=== PATIENT | female | born 1940 | race Caucasian/White ===

== ENCOUNTER 2020-11-03 02:24 | Inpatient (IN) ==
[2020-11-03] MEDS ORDERED: NICOTINE 21 MG/24 HR PATCH TRANSDERM PRN (05:41)
[2020-11-03] MEDS ORDERED: ZALEPLON 5 MG CAPSULE PO PRN (05:41)
[2020-11-03] MEDS ORDERED: DEXTROSE 50% 25 GM/50 ML VIAL IV PRN (05:41)
[2020-11-03] MEDS ORDERED: GLUCAGON 1 MG VIAL IM PRN (05:41)
[2020-11-03] MEDS ORDERED: DOCUSATE SODIUM 100 MG CAPSULE PO PRN (05:41)
[2020-11-03] MEDS ORDERED: ACETAMINOPHEN 325 MG TABLET PO PRN (05:41)
[2020-11-03] MEDS ORDERED: hydrALAZINE 20 MG/1 ML VIAL IV PRN (05:41)
[2020-11-03] MEDS ORDERED: ALBUTEROL 2.5 MG/3 ML NEB RESP TX PRN (05:41)
[2020-11-03] MEDS ORDERED: diphenhydrAMINE CAP 25 MG CAPSULE PO PRN (05:41)
[2020-11-03] MEDS ORDERED: LEVOTHYROXINE 100 MCG TABLET PO SCH (06:30)
[2020-11-03 06:49] LABS: Basophils # 0.1 10*3/uL (0.0-0.2); Basophils % 0.5 % (0.0-0.8); Eosinophils # 0.1 10*3/uL (0.0-0.87); Eosinophils % 0.8 % (0.00-10.9); Hematocrit 38.6 VOL% (35.7-47.0); Hemoglobin 12.8 GM/DL (12.0-16.0); Immature Granulocytes % 0.3 %; Immature Granulocytes Absolute 0.03 #; Lymphocytes # 2.2 10*3/uL (1.4-4.0); Lymphocytes % 22.3 % (21.3-54.2); Mean Corpuscular HGB Conc 33.2 GM/DL (32-36); Monocytes % 8.2 % (1.7-12.7); Neutrophils % 67.9 % (38.7-73.9); Platelet Count 198 T/CUMM (130-400); Red Blood Count 4.15 MC/CUMM (3.8-5.5); Red Cell Distribution Width 12.8 % (9.3-17.3)
[2020-11-03 07:12] LABS: Hypochromasia Slight; Microcytosis Slight; Platelet Estimate Adequate
[2020-11-03 07:23] LABS: Calcium 9.2 MG/DL (8.5-10.1); Potassium 4.2 MMOL/L (3.5-5.1)
[2020-11-03 07:32] LABS: Free T4 (Free Thyroxine) 1.75 NG/DL (0.76-1.46)
[2020-11-03] MEDS: SOTALOL 80 MG TABLET PO SCH ×2 (09:19→21:59)
[2020-11-03] MEDS: RIVAROXABAN 20 MG TABLET PO SCH (09:19)
[2020-11-03] MEDS: ASPIRIN EC 81 MG TABLET PO SCH (09:19)
[2020-11-03] MEDS: PANTOPRAZOLE 40 MG TABLET PO SCH (09:20)
[2020-11-03] MEDS: SPIRONOLACTONE 25 MG TABLET PO SCH (09:20)
[2020-11-03] MEDS: FUROSEMIDE 40 MG TABLET PO SCH (09:20)
[2020-11-03] MEDS: ENALAPRIL 20 MG TABLET PO SCH (09:20)
[2020-11-03] MEDS: LEVOFLOXACIN INJ 750 MG/150 ML PREMIX IV SCH (12:23)
[2020-11-03] MEDS: SODIUM CHLORIDE 0.9% 1,000 ML IV SCH (13:11)
[2020-11-03] MEDS: FLUTICASONE 50 MCG NASAL SPRAY 16 GM BOTTLE BOTH NARES SCH ×2 (13:11→14:06)
[2020-11-03] MEDS: guaiFENesin/DM ER 600-30 MG TABLET PO PRN ×2 (14:06→21:59)
[2020-11-03] MEDS ORDERED: KETOROLAC 30 MG/1 ML VIAL IV ONE (15:52)
[2020-11-03] MEDS ORDERED: ALUM/MAG/SIMETH/LIDO VISC 1:1 30 ML BOTTLE PO ONE (15:53)
[2020-11-03] MEDS: ALBUTEROL 0.63 MG/3 ML NEB RESP TX SCH (20:47)
[2020-11-03] MEDS: ATORVASTATIN 40 MG TABLET PO SCH (21:59)
[2020-11-03] MEDS: MONTELUKAST 10 MG TABLET PO SCH (21:59)
[2020-11-03] MEDS: ONDANSETRON 4 MG/2 ML VIAL IV PRN (22:17)
[2020-11-04] MEDS: ALBUTEROL 0.63 MG/3 ML NEB RESP TX SCH ×7 (01:00→22:32)
[2020-11-04 06:07] LABS: Basophils % 0.4 % (0.0-0.8); Eosinophils # 0.1 10*3/uL (0.0-0.87); Eosinophils % 1.4 % (0.00-10.9); Hemoglobin 12.9 GM/DL (12.0-16.0); Immature Granulocytes % 0.3 %; Immature Granulocytes Absolute 0.02 #; Lymphocytes # 1.7 10*3/uL (1.4-4.0); Lymphocytes % 24.4 % (21.3-54.2); Mean Corpuscular HGB Conc 33.1 GM/DL (32-36); Mean Corpuscular Volume 92.6 FL (87-102); Mean Platelet Volume 11.6 FL (9.6-12.0); Monocytes % 11.5 % (1.7-12.7); Platelet Count 160 T/CUMM (130-400); Red Blood Count 4.21 MC/CUMM (3.8-5.5)
[2020-11-04 06:27] LABS: Osmolality,Calculated 273.2 MOS/KG (273-304)
[2020-11-04] MEDS: LEVOTHYROXINE 75 MCG TABLET PO SCH (06:54)
[2020-11-04] MEDS ORDERED: MIDAZOLAM 10 MG/2 ML VIAL IV ONE (07:52)
[2020-11-04] MEDS: ASPIRIN EC 81 MG TABLET PO SCH (09:26)
[2020-11-04] MEDS: FLUTICASONE 50 MCG NASAL SPRAY 16 GM BOTTLE BOTH NARES SCH (09:26)
[2020-11-04] MEDS: SPIRONOLACTONE 25 MG TABLET PO SCH (09:26)
[2020-11-04] MEDS: FUROSEMIDE 40 MG TABLET PO SCH (09:26)
[2020-11-04] MEDS: RIVAROXABAN 20 MG TABLET PO SCH (09:26)
[2020-11-04] MEDS: SOTALOL 80 MG TABLET PO SCH (09:26)
[2020-11-04] MEDS: ENALAPRIL 20 MG TABLET PO SCH (09:30)
[2020-11-04] MEDS: LEVOFLOXACIN INJ 750 MG/150 ML PREMIX IV SCH (09:34)
[2020-11-04] MEDS: sitaGLIPtin 100 MG TABLET PO SCH (09:34)
[2020-11-04] MEDS: PANTOPRAZOLE 40 MG TABLET PO SCH (09:34)
[2020-11-04] MEDS: SODIUM CHLORIDE 0.9% 1,000 ML IV SCH (12:49)
[2020-11-04] MEDS: INSULIN LISPRO 100 UNIT/ML SUBCUT SCH ×2 (16:55→21:59)
[2020-11-04] MEDS: MORPHINE 4 MG/1 ML VIAL IV PRN (18:02)
[2020-11-04] MEDS: ONDANSETRON 4 MG/2 ML VIAL IV PRN (19:45)
[2020-11-04] MEDS: MONTELUKAST 10 MG TABLET PO SCH (21:59)
[2020-11-04] MEDS: ATORVASTATIN 40 MG TABLET PO SCH (21:59)
[2020-11-04] MEDS: guaiFENesin/DM ER 600-30 MG TABLET PO PRN (21:59)
[2020-11-05] MEDS: ONDANSETRON 4 MG/2 ML VIAL IV PRN ×3 (00:54→12:18)
[2020-11-05] MEDS ORDERED: ONDANSETRON 4 MG/2 ML VIAL IV ONE ×2 (02:57→03:08)
[2020-11-05] MEDS ORDERED: MORPHINE 4 MG/1 ML VIAL IV ONE (02:57)
[2020-11-05] MEDS: ALBUTEROL 0.63 MG/3 ML NEB RESP TX SCH ×5 (04:00→19:22)
[2020-11-05 04:23] LABS: Basophils % 0.4 % (0.0-0.8); Eosinophils # 0.1 10*3/uL (0.0-0.87); Eosinophils % 1.5 % (0.00-10.9); Hematocrit 36.6 VOL% (35.7-47.0); Hemoglobin 12.2 GM/DL (12.0-16.0); Immature Granulocytes % 0.4 %; Immature Granulocytes Absolute 0.03 #; Lymphocytes # 2.5 10*3/uL (1.4-4.0); Lymphocytes % 30.1 % (21.3-54.2); Mean Corpuscular HGB Conc 33.3 GM/DL (32-36); Mean Corpuscular Volume 93.6 FL (87-102); Mean Platelet Volume 11.7 FL (9.6-12.0); Neutrophils % 56.6 % (38.7-73.9); Platelet Count 183 T/CUMM (130-400); Red Blood Count 3.91 MC/CUMM (3.8-5.5); Red Cell Distribution Width 13.2 % (9.3-17.3); White Blood Count 8.3 T/CUMM (4-12)
[2020-11-05 04:40] LABS: Calcium 9.3 MG/DL (8.5-10.1); Osmolality,Calculated 271.2 MOS/KG (273-304); Potassium 4.3 MMOL/L (3.5-5.1)
[2020-11-05] MEDS: LEVOTHYROXINE 75 MCG TABLET PO SCH (06:05)
[2020-11-05] MEDS: MORPHINE 4 MG/1 ML VIAL IV PRN ×3 (08:13→21:24)
[2020-11-05] MEDS: ASPIRIN EC 81 MG TABLET PO SCH (08:14)
[2020-11-05] MEDS: FUROSEMIDE 40 MG TABLET PO SCH (08:14)
[2020-11-05] MEDS: SPIRONOLACTONE 25 MG TABLET PO SCH (08:14)
[2020-11-05] MEDS: FLUTICASONE 50 MCG NASAL SPRAY 16 GM BOTTLE BOTH NARES SCH (08:14)
[2020-11-05] MEDS: PANTOPRAZOLE 40 MG TABLET PO SCH (08:14)
[2020-11-05] MEDS: RIVAROXABAN 20 MG TABLET PO SCH (08:14)
[2020-11-05] MEDS: sitaGLIPtin 100 MG TABLET PO SCH (08:14)
[2020-11-05] MEDS: ENALAPRIL 20 MG TABLET PO SCH (08:15)
[2020-11-05] MEDS: INSULIN LISPRO 100 UNIT/ML SUBCUT SCH ×4 (08:23→20:28)
[2020-11-05] MEDS: SODIUM CHLORIDE 0.9% 1,000 ML IV SCH (09:20)
[2020-11-05] MEDS: LEVOFLOXACIN INJ 750 MG/150 ML PREMIX IV SCH (09:20)
[2020-11-05] MEDS ORDERED: PHENOL 1.4% THROAT SPRAY 177 ML BOTTLE PO PRN (09:45)
[2020-11-05] MEDS: MONTELUKAST 10 MG TABLET PO SCH (20:28)
[2020-11-05] MEDS: ATORVASTATIN 40 MG TABLET PO SCH (20:28)
[2020-11-06] MEDS: ALBUTEROL 0.63 MG/3 ML NEB RESP TX SCH ×7 (00:44→22:40)
[2020-11-06 04:44] LABS: Basophils % 0.5 % (0.0-0.8); Eosinophils # 0.1 10*3/uL (0.0-0.87); Eosinophils % 0.8 % (0.00-10.9); Hematocrit 36.2 VOL% (35.7-47.0); Hemoglobin 11.9 GM/DL (12.0-16.0); Immature Granulocytes % 0.4 %; Immature Granulocytes Absolute 0.03 #; Lymphocytes % 26.7 % (21.3-54.2); Mean Corpuscular HGB Conc 32.9 GM/DL (32-36); Mean Corpuscular Volume 93.5 FL (87-102); Mean Platelet Volume 11.1 FL (9.6-12.0); Monocytes % 8.5 % (1.7-12.7); Neutrophils % 63.1 % (38.7-73.9); Platelet Count 175 T/CUMM (130-400); Red Blood Count 3.87 MC/CUMM (3.8-5.5); Red Cell Distribution Width 12.7 % (9.3-17.3); White Blood Count 7.5 T/CUMM (4-12)
[2020-11-06 04:56] LABS: Calcium 9.3 MG/DL (8.5-10.1); Osmolality,Calculated 270.2 MOS/KG (273-304)
[2020-11-06 05:13] LABS: Hypochromasia 1+; Microcytosis 1+; Platelet Estimate Adequate
[2020-11-06] MEDS: LEVOTHYROXINE 75 MCG TABLET PO SCH (05:37)
[2020-11-06] MEDS: PANTOPRAZOLE 40 MG TABLET PO SCH (08:54)
[2020-11-06] MEDS: SPIRONOLACTONE 25 MG TABLET PO SCH (08:55)
[2020-11-06] MEDS: sitaGLIPtin 100 MG TABLET PO SCH (08:55)
[2020-11-06] MEDS: RIVAROXABAN 20 MG TABLET PO SCH (08:55)
[2020-11-06] MEDS: FUROSEMIDE 40 MG TABLET PO SCH (08:55)
[2020-11-06] MEDS: ASPIRIN EC 81 MG TABLET PO SCH (08:56)
[2020-11-06] MEDS: ENALAPRIL 20 MG TABLET PO SCH (08:56)
[2020-11-06] MEDS: FLUTICASONE 50 MCG NASAL SPRAY 16 GM BOTTLE BOTH NARES SCH (08:56)
[2020-11-06] MEDS: INSULIN LISPRO 100 UNIT/ML SUBCUT SCH ×4 (08:59→20:22)
[2020-11-06] MEDS: SODIUM CHLORIDE 0.9% 1,000 ML IV SCH (10:17)
[2020-11-06] MEDS: ATORVASTATIN 40 MG TABLET PO SCH (20:22)
[2020-11-06] MEDS: MONTELUKAST 10 MG TABLET PO SCH (20:22)
[2020-11-07] MEDS: ALBUTEROL 0.63 MG/3 ML NEB RESP TX SCH ×6 (02:37→23:50)
[2020-11-07] MEDS: LEVOTHYROXINE 75 MCG TABLET PO SCH (05:34)
[2020-11-07] MEDS: INSULIN LISPRO 100 UNIT/ML SUBCUT SCH ×4 (08:20→22:45)
[2020-11-07] MEDS: FUROSEMIDE 40 MG TABLET PO SCH (09:06)
[2020-11-07] MEDS: SPIRONOLACTONE 25 MG TABLET PO SCH (09:06)
[2020-11-07] MEDS: RIVAROXABAN 20 MG TABLET PO SCH (09:06)
[2020-11-07] MEDS: PANTOPRAZOLE 40 MG TABLET PO SCH (09:07)
[2020-11-07] MEDS: METOPROLOL SUCCINATE XL 50 MG TABLET PO SCH (09:07)
[2020-11-07] MEDS: ASPIRIN EC 81 MG TABLET PO SCH (09:07)
[2020-11-07] MEDS: sitaGLIPtin 100 MG TABLET PO SCH (09:07)
[2020-11-07] MEDS: ENALAPRIL 20 MG TABLET PO SCH (09:07)
[2020-11-07] MEDS: FLUTICASONE 50 MCG NASAL SPRAY 16 GM BOTTLE BOTH NARES SCH (09:07)
[2020-11-07] MEDS: SODIUM CHLORIDE 0.9% 1,000 ML IV SCH (09:42)
[2020-11-07] MEDS: ONDANSETRON 4 MG/2 ML VIAL IV PRN (11:33)
[2020-11-07] MEDS ORDERED: POLYETHYLENE GLYCOL POWDER 17 GM PACK PO PRN (13:58)
[2020-11-07] MEDS: DOCUSATE SODIUM 100 MG CAPSULE PO SCH (22:42)
[2020-11-07] MEDS: MONTELUKAST 10 MG TABLET PO SCH (22:42)
[2020-11-07] MEDS: ATORVASTATIN 40 MG TABLET PO SCH (22:42)
[2020-11-08] MEDS: ALBUTEROL 0.63 MG/3 ML NEB RESP TX SCH ×5 (03:08→20:18)
[2020-11-08] MEDS: LEVOTHYROXINE 75 MCG TABLET PO SCH (06:40)
[2020-11-08] MEDS: PANTOPRAZOLE 40 MG TABLET PO SCH (09:00)
[2020-11-08] MEDS: sitaGLIPtin 100 MG TABLET PO SCH (09:00)
[2020-11-08] MEDS: RIVAROXABAN 20 MG TABLET PO SCH (09:00)
[2020-11-08] MEDS: FUROSEMIDE 40 MG TABLET PO SCH (09:00)
[2020-11-08] MEDS: SPIRONOLACTONE 25 MG TABLET PO SCH (09:01)
[2020-11-08] MEDS: DOCUSATE SODIUM 100 MG CAPSULE PO SCH ×2 (09:01→22:45)
[2020-11-08] MEDS: ENALAPRIL 20 MG TABLET PO SCH (09:01)
[2020-11-08] MEDS: METOPROLOL SUCCINATE XL 50 MG TABLET PO SCH (09:01)
[2020-11-08] MEDS: FLUTICASONE 50 MCG NASAL SPRAY 16 GM BOTTLE BOTH NARES SCH (09:02)
[2020-11-08] MEDS: ASPIRIN EC 81 MG TABLET PO SCH (09:02)
[2020-11-08] MEDS: INSULIN LISPRO 100 UNIT/ML SUBCUT SCH ×4 (09:35→20:01)
[2020-11-08] MEDS: SODIUM CHLORIDE 0.9% 1,000 ML IV SCH (09:36)
[2020-11-08] MEDS ORDERED: TUBERCULIN SKIN TEST 0.1 ML SYRINGE INTRADERM ONE (15:01)
[2020-11-08] MEDS: MONTELUKAST 10 MG TABLET PO SCH (22:45)
[2020-11-08] MEDS: ATORVASTATIN 40 MG TABLET PO SCH (22:45)
[2020-11-09] MEDS: ALBUTEROL 0.63 MG/3 ML NEB RESP TX SCH ×5 (00:16→19:32)
[2020-11-09] MEDS: LEVOTHYROXINE 75 MCG TABLET PO SCH (06:06)
[2020-11-09 07:37] LABS: Basophils % 0.5 % (0.0-0.8); Eosinophils # 0.1 10*3/uL (0.0-0.87); Eosinophils % 0.6 % (0.00-10.9); Hematocrit 39.7 VOL% (35.7-47.0); Immature Granulocytes % 0.4 %; Immature Granulocytes Absolute 0.03 #; Lymphocytes # 2.6 10*3/uL (1.4-4.0); Lymphocytes % 32.3 % (21.3-54.2); Mean Corpuscular HGB Conc 32.7 GM/DL (32-36); Mean Corpuscular Volume 93.9 FL (87-102); Mean Platelet Volume 10.9 FL (9.6-12.0); Monocytes % 7.5 % (1.7-12.7); Neutrophils % 58.7 % (38.7-73.9); Platelet Count 216 T/CUMM (130-400); Red Blood Count 4.23 MC/CUMM (3.8-5.5); Red Cell Distribution Width 12.5 % (9.3-17.3); White Blood Count 8.1 T/CUMM (4-12)
[2020-11-09 07:52] LABS: Osmolality,Calculated 271.2 MOS/KG (273-304); Potassium 4.2 MMOL/L (3.5-5.1)
[2020-11-09 07:56] LABS: Eosinophils 2 % (0-10); Hypochromasia Slight; Lymphocytes 33 % (20-55); Microcytosis Slight; Platelet Estimate Adequate; Segmented Neutrophils 60 % (50-85); Total Cells Counted 100
[2020-11-09] MEDS: RIVAROXABAN 20 MG TABLET PO SCH (09:07)
[2020-11-09] MEDS: INSULIN LISPRO 100 UNIT/ML SUBCUT SCH ×4 (09:07→20:01)
[2020-11-09] MEDS: sitaGLIPtin 100 MG TABLET PO SCH (09:07)
[2020-11-09] MEDS: DOCUSATE SODIUM 100 MG CAPSULE PO SCH ×2 (09:08→20:37)
[2020-11-09] MEDS: METOPROLOL SUCCINATE XL 50 MG TABLET PO SCH (09:08)
[2020-11-09] MEDS: FUROSEMIDE 40 MG TABLET PO SCH (09:08)
[2020-11-09] MEDS: PANTOPRAZOLE 40 MG TABLET PO SCH (09:08)
[2020-11-09] MEDS: SPIRONOLACTONE 25 MG TABLET PO SCH (09:08)
[2020-11-09] MEDS: ENALAPRIL 20 MG TABLET PO SCH (09:08)
[2020-11-09] MEDS: ASPIRIN EC 81 MG TABLET PO SCH (09:08)
[2020-11-09] MEDS: metFORMIN 500 MG TABLET PO SCH (09:08)
[2020-11-09] MEDS: FLUTICASONE 50 MCG NASAL SPRAY 16 GM BOTTLE BOTH NARES SCH (09:09)
[2020-11-09] MEDS: SODIUM CHLORIDE 0.9% 1,000 ML IV SCH (09:10)
[2020-11-09] MEDS: POLYETHYLENE GLYCOL POWDER 17 GM PACK PO SCH (12:08)
[2020-11-09] MEDS ORDERED: SODIUM CHLORIDE 0.65% NASAL SPRAY 45 ML BOTTLE BOTH NARES PRN (14:09)
[2020-11-09] MEDS: MONTELUKAST 10 MG TABLET PO SCH (20:37)
[2020-11-09] MEDS: ATORVASTATIN 40 MG TABLET PO SCH (20:37)
[2020-11-10] MEDS: ALBUTEROL 0.63 MG/3 ML NEB RESP TX SCH ×4 (00:52→11:00)
[2020-11-10] MEDS: LEVOTHYROXINE 75 MCG TABLET PO SCH (06:27)
[2020-11-10 07:46] VITALS: BP 130/51
[2020-11-10] MEDS: INSULIN LISPRO 100 UNIT/ML SUBCUT SCH ×2 (08:45→11:26)
[2020-11-10] MEDS: FUROSEMIDE 40 MG TABLET PO SCH (08:47)
[2020-11-10] MEDS: ENALAPRIL 20 MG TABLET PO SCH (08:47)
[2020-11-10] MEDS: DOCUSATE SODIUM 100 MG CAPSULE PO SCH (08:47)
[2020-11-10] MEDS: ASPIRIN EC 81 MG TABLET PO SCH (08:47)
[2020-11-10] MEDS: POLYETHYLENE GLYCOL POWDER 17 GM PACK PO SCH (08:47)
[2020-11-10] MEDS: FLUTICASONE 50 MCG NASAL SPRAY 16 GM BOTTLE BOTH NARES SCH (08:48)
[2020-11-10] MEDS: sitaGLIPtin 100 MG TABLET PO SCH (08:48)
[2020-11-10] MEDS: PANTOPRAZOLE 40 MG TABLET PO SCH (08:48)
[2020-11-10] MEDS: metFORMIN 500 MG TABLET PO SCH (08:48)
[2020-11-10] MEDS: RIVAROXABAN 20 MG TABLET PO SCH (08:48)
[2020-11-10] MEDS: METOPROLOL SUCCINATE XL 50 MG TABLET PO SCH (08:48)
[2020-11-10] MEDS: SPIRONOLACTONE 25 MG TABLET PO SCH (08:48)
== END 2020-11-10 14:35 | DRG 310 ==
LOC: N.TELES 04:58 → SUATTDRO 04:58 → INTOOBSV 04:58 → SUATTDRO 11-06 09:53
PROVIDERS: ADMIT Internal Medicine; ATTEND Internal Medicine